=== PATIENT | male | born 1985 | race Caucasian/White ===

== ENCOUNTER 2021-03-23 13:47 | Outpatient (CLI) | payer BC | END 2021-03-23 13:48 | disposition home or self-care (01) | LOC: BICRAD 13:47 | PROVIDERS: ATTEND Chiropractor | DX: M79.671 Pain in right foot (principal); M25.562 Pain in left knee ==

== ENCOUNTER 2025-03-10 13:02 | Outpatient (CLI) | payer BC | END 2025-03-10 13:03 | disposition home or self-care (01) | LOC: SCSMRI 13:02 | PROVIDERS: ATTEND Chiropractor | DX: R10.30 Lower abdominal pain, unspecified (principal); R35.0 Frequency of micturition; K76.0 Fatty (change of) liver, not elsewhere classified | CPT/HCPCS: 72195; 74181 ==